=== PATIENT | male | born 1985 | race Caucasian/White ===

== ENCOUNTER 2016-06-28 17:55 | Emergency (ER) | payer OTHER | END 2016-06-28 19:30 | disposition home or self-care (01) | LOC: ER 17:55 | DX: T15.11XA Foreign body in conjunctival sac, right eye, initial encounter (principal) | CPT/HCPCS: 99282 ==

== ENCOUNTER 2016-07-09 16:27 | Emergency (ER) | payer OTHER | END 2016-07-09 18:55 | disposition home or self-care (01) | LOC: ER 16:27 | DX: M25.561 Pain in right knee (principal); Z79.899 Other long term (current) drug therapy | CPT/HCPCS: 73564; 99070; 99283 ==